=== PATIENT | male | born 1990 | race American Indian/Alaskan Native ===

== ENCOUNTER 2020-10-14 15:20 | Emergency (ER) | payer SELFPAY ==
[2020-10-14 15:35] VITALS: BP 117/71
--- NOTE | 2020-10-14 15:36 | Event Note ---
ED Screening Note Date of service: 10/14/20 Time: 15:35 ED Screening Note: Patient complains of right-sided chest pain x3 days History of HIV Denies cough/shortness of breath This initial assessment/diagnostic orders/clinical plan/treatment(s) is/are subject to change based on patients health status, clinical progression and re- assessment by fellow clinical providers in the ED. Further treatment and workup at subsequent clinical providers discretion. Patient/guardian urged not to elope from the ED as their condition may be serious if not clinically assessed and managed. Initial orders include: labs cxr ekg
--- NOTE | 2020-10-14 15:57 | XRay Report ---
CHEST 2 VIEWS INDICATION: chest pain. COMPARISON: None FINDINGS: Support devices: None. Heart: Within normal limits. Lungs/pleura: The lungs are hyperinflated versus good inspiration. No acute air space or interstitial disease. No pneumothorax. Additional findings: None. IMPRESSION: No acute findings. Signer Name: John Keenan Jr, MD Signed: 10/14/2020 3:53 PM Workstation Name: [id number]
[2020-10-14 16:11] LABS: Basophils % (Auto) 0.9 % (0.0-1.8); Eosinophils # (Auto) 0.1 K/mm3 (0.0-0.4); Eosinophils % (Auto) 4.4 % (0.0-4.3); Hematocrit 42.9 % (35.5-45.6); Hemoglobin 14.4 gm/dl (11.8-15.2); Lymphocytes # (Auto) 1.1 K/mm3 (1.2-5.4); Lymphocytes % (Auto) 44.7 % (13.4-35.0); Mean Corpuscular HGB Conc 34 % (32-34); Mean Corpuscular Volume 87 fl (84-94); Monocytes # (Auto) 0.3 K/mm3 (0.0-0.8); Monocytes % (Auto) 12.5 % (0.0-7.3); Platelet Count 158 K/mm3 (140-440); Red Blood Count 4.94 M/mm3 (3.65-5.03); Red Cell Distribution Width 12.6 % (13.2-15.2)
[2020-10-14 17:07] LABS: Alanine Aminotransferase 14 units/L (7-56); Albumin 4.4 g/dL (3.9-5); BUN/Creatinine Ratio 10; Blood Urea Nitrogen 10 mg/dL (9-20); Calcium 9.5 mg/dL (8.4-10.2); Hemolysis Index 16
--- NOTE | 2020-10-14 18:26 | Emergency Department Report ---
ED General Adult HPI - General Chief complaint: Chest Pain Stated complaint: CHEST PAIN Time Seen by Provider: 10/14/20 15:34 Source: patient Mode of arrival: Ambulatory Limitations: No Limitations - History of Present Illness Initial comments: Patient is a 30-year-old male who presents emergency room complaints of right- sided chest pain and pain underneath the right arm that began 3 days ago. He states that he woke up with it one morning. he states the pain is worse with movement. He denies any fall or injury. 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 He denies any heavy lifting. He denies any nausea, vomiting, diarrhea, fever, cough, shortness of breath, leg swelling. He denies any recent travel, recent surgery, hormone use. He endorses marijuana use but denies tobacco use. He has a past medical history of HIV and reports that he is on his antivirals but is unsure of his CD4 count. He denies any allergies to medications. He denies any family history of DVT/PE or cardiac history. - Related Data Previous Rx's Medication Instructions Recorded Last Taken Type Naproxen [EC-Naprosyn] 500 mg PO BID PRN #14 tablet. 10/14/20 Unknown Rx methOCARBAMOL [Robaxin TAB] 500 mg PO BID PRN #14 tab 10/14/20 Unknown Rx Allergies Allergy/AdvReac Type Severity Reaction Status Date / Time No Known Allergies Allergy Unverified 10/14/20 15:32 ED Review of Systems ROS: Stated complaint: CHEST PAIN Other details as noted in HPI Comment: All other systems reviewed and negative ED Past Medical Hx - Past Medical History Previous Medical History?: Yes Hx HIV: Yes - Medications Home Medications: Home Medications Medication Instructions Recorded Confirmed Last Taken Type Naproxen [EC-Naprosyn] 500 mg PO BID PRN #14 tablet. 10/14/20 Unknown Rx methOCARBAMOL [Robaxin TAB] 500 mg PO BID PRN #14 tab 10/14/20 Unknown Rx ED Physical Exam - General Limitations: No Limitations General appearance: alert, in no apparent distress - Head Head exam: Present: atraumatic, normocephalic - Eye Eye exam: Present: normal appearance - ENT ENT exam: Present: mucous membranes moist - Respiratory Respiratory exam: Present: normal lung sounds bilaterally, chest wall tenderness (reproducible right anterior chest wall ttp overlying the pectoralis muscle, no edema, no ecchymosis, no crepitus, no deformity). Absent: respiratory distress, wheezes, rales, rhonchi, stridor, accessory muscle use, decreased breath sounds, prolonged expiratory - Cardiovascular Cardiovascular Exam: Present: regular rate, normal rhythm, normal heart sounds. Absent: systolic murmur, diastolic murmur, rubs, gallop - Neurological Exam Neurological exam: Present: alert, oriented X3 - Psychiatric Psychiatric exam: Present: normal affect, normal mood - Skin Skin exam: Present: warm, dry, intact ED Course Vital Signs 10/14/20 15:32 Temperature 98.0 F Pulse Rate 77 Respiratory 18 Rate Blood Pressure 117/71 [Right] O2 Sat by Pulse 99 Oximetry ED Medical Decision Making - Lab Data Result diagrams: 10/14/20 15:48 10/14/20 15:48 Lab Results 10/14/20 10/14/20 Range/Units 15:48 15:48 WBC 2.4 L (4.5-11.0) K/mm3 RBC 4.94 (3.65-5.03) M/mm3 Hgb 14.4 (11.8-15.2) gm/dl Hct 42.9 (35.5-45.6) % MCV 87 (84-94) fl MCH 29 (28-32) pg MCHC 34 (32-34) % RDW 12.6 L (13.2-15.2) % Plt Count 158 (140-440) K/mm3 Lymph % (Auto) 44.7 H (13.4-35.0) % [place] % (Auto) 12.5 H (0.0-7.3) % Eos % (Auto) 4.4 H (0.0-4.3) % Baso % (Auto) 0.9 (0.0-1.8) % Lymph # (Auto) 1.1 L (1.2-5.4) K/mm3 [place] # (Auto) 0.3 (0.0-0.8) K/mm3 Eos # (Auto) 0.1 (0.0-0.4) K/mm3 Baso # (Auto) 0.0 (0.0-0.1) K/mm3 Seg Neutrophils % 37.5 L (40.0-70.0) % Seg Neutrophils # 0.9 L (1.8-7.7) K/mm3 Sodium 137 (137-145) mmol/L Potassium 4.5 (3.6-5.0) mmol/L Chloride 100.1 (98-107) mmol/L Carbon Dioxide 30 (22-30) mmol/L Anion Gap 11 mmol/L BUN 10 (9-20) mg/dL Creatinine 1.0 (0.8-1.3) mg/dL Estimated GFR > 60 ml/min BUN/Creatinine Ratio 10 % Glucose 108 H (75-100) mg/dL Calcium 9.5 (8.4-10.2) mg/dL Total Bilirubin 0.60 (0.1-1.2) mg/dL AST 20 (5-40) units/L ALT 14 (7-56) units/L Alkaline Phosphatase 34 L (35-129) units/L Troponin T < 0.010 (0.00-0.029) ng/mL Total Protein 8.2 (6.3-8.2) g/dL Albumin 4.4 (3.9-5) g/dL Albumin/Globulin Ratio 1.2 % Vital Signs 10/14/20 15:32 Temperature 98.0 F Pulse Rate 77 Respiratory 18 Rate Blood Pressure 117/71 [Right] O2 Sat by Pulse 99 Oximetry - EKG Data EKG shows normal: sinus rhythm, axis, intervals, QRS complexes Rate: normal - EKG Data 10/14/20 22:02 normal early repolarization, No STEMI - Radiology Data Radiology results: report reviewed Ordering Physician: TR VAZQUEZ Date of Service: 10/14/20 Procedure(s): XR chest routine 2V Accession Number(s): [id number] cc: TR VAZQUEZ Fluoro Time In Minutes: CHEST 2 VIEWS INDICATION: chest pain. COMPARISON: None FINDINGS: Support devices: None. Heart: Within normal limits. Lungs/pleura: The lungs are hyperinflated versus good inspiration. No acute air space or interstitial disease. No pneumothorax. Additional findings: None. IMPRESSION: No acute findings. Signer Name: John Mock Jr, MD Signed: 10/14/2020 3:53 PM Workstation Name: [id number] Transcribed By: TTR Dictated By: JOHN MOCK JR, MD Electronically Authenticated By: JOHN MOCK JR, MD Signed Date/Time: 10/14/201552 DD/ 51 TD/TT: - Medical Decision Making Patient is a 30-year-old male who presents emergency room complaints of right- sided chest pain and pain underneath the right arm that began 3 days ago. He states that he woke up with it one morning. he states the pain is worse with movement. He denies any fall or injury. 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 He denies any heavy lifting. He denies any nausea, vomiting, diarrhea, fever, cough, shortness of breath, leg swelling. He denies any recent travel, recent surgery, hormone use. He endorses marijuana use but denies tobacco use. He has a past medical history of HIV and reports that he is on his antivirals but is unsure of his CD4 count. He denies any allergies to medications. He denies any family history of DVT/PE or cardiac history. vitals are normal. on exam:reproducible right anterior chest wall ttp overlying the pectoralis muscle, no edema, no ecchymosis, no crepitus, no deformity. CXR: No acute findings. EKG with normal early repolarization pattern, otherwise normal. Labs are stable. Examination appears most consistent with pectoralis muscle strain. PERC criteria negative for PE, PE unlikely. Heart score and SOUMYA score 0, symptoms and examination do not appear consistent with ACS. Written prescription for naproxen and Robaxin. Patient instructions Please take medication as prescribed. Do not drive or operate machinery while taking muscle max Robaxin. May use ice pack, heating pad, rest, and epsom salt bath. Follow-up with a primary care doctor for reexamination. Return to emergency room for any new or worsening symptoms. Critical care attestation.: If time is entered above; I have spent that time in minutes in the direct care of this critically ill patient, excluding procedure time. ED Disposition Clinical Impression: Chest wall pain Pectoralis muscle strain Qualifiers: Encounter type: initial encounter Qualified Code(s): S29.011A - Strain of muscle and tendon of front wall of thorax, initial encounter Disposition: - TO HOME OR SELFCARE Is pt being admited?: No Does the pt Need Aspirin: No Condition: Stable Instructions: Muscle Strain, [id number], Chest Pain (ED) Additional Instructions: Please take medication as prescribed. Do not drive or operate machinery while taking muscle max Robaxin. May use ice pack, heating pad, rest, and epsom salt bath. Follow-up with a primary care doctor for reexamination. Return to emergency room for any new or worsening symptoms. Prescriptions: Naproxen [EC-Naprosyn] 500 mg PO BID PRN #14 tablet. PRN Reason: pain methOCARBAMOL [Robaxin TAB] 500 mg PO BID PRN #14 tab PRN Reason: pain Referrals: your, primary care doctor [Other] - 2-3 Days Time of Disposition: 18:25 Print Language: DANISH HEART Score - HEART Score History: Slightly suspicious EKG: Normal Age: < 45 Risk factors: No known risk factors Troponin: Troponin T < 0.010 ng/mL (0.00-0.029) 10/14/20 15:48 Troponin: < normal limit HEART Score: 0
== END 2020-10-14 19:00 | disposition home or self-care (01) ==
LOC: ED 15:20
DX: S29.011A Strain of muscle and tendon of front wall of thorax, initial encounter (principal); Z21 Asymptomatic human immunodeficiency virus [HIV] infection status; Z79.899 Other long term (current) drug therapy; X58.XXXA Exposure to other specified factors, initial encounter; Y93.89 Activity, other specified; Y92.89 Other specified places as the place of occurrence of the external cause; Y99.8 Other external cause status
CPT/HCPCS: 36415; 71046; 80053; 84484; 85025; 93005; 99283